=== PATIENT | female | born 1960 | race Caucasian/White ===

== ENCOUNTER → 2021-01-09 | Outpatient (CLI) | payer OTHER ==
[~2021-01-09] MED LIST: AMLODIPINE-OLM1 EAC4 PO; CYCL10 PO; MELATONIN5 M1; NAPR500 PO; PANT20 PO; PRINIVIL5 M1 PO; ZOLOFT100 M3
[2021-01-12 18:09] LABS: COTININE Negative ng/mL (Cutoff=300)
== END | disposition home or self-care (01) ==
LOC: LAB 15:49 → LAB SHORT 15:49 → EDSTATUS 12-19 17:05 → LAB FUT 12-19 17:05
PROVIDERS: Podiatrist Foot & Ankle Surgery
DX: Z01.812 Encounter for preprocedural laboratory examination (principal); M17.11 Unilateral primary osteoarthritis, right knee; M20.5X1 Other deformities of toe(s) (acquired), right foot

== ENCOUNTER 2021-01-28 12:26 | Day surgery (SDC) | payer OTHER ==
[~2021-01-28] VITALS: Ht 162.6 cm; Wt 221.2 kg
[2021-01-28] MEDS ORDERED: ZOLOFT100 M3 (13:03)
[2021-01-28] MEDS ORDERED: PANT20 PO (13:04)
[2021-01-28] MEDS ORDERED: NAPR500 PO (13:04)
[2021-01-28] MEDS ORDERED: PRINIVIL5 M1 PO (13:05)
[2021-01-28] MEDS ORDERED: AMLODIPINE-OLM1 EAC4 PO (13:05)
[2021-01-28] MEDS ORDERED: CYCL10 PO (13:06)
[2021-01-28] MEDS ORDERED: MELATONIN5 M1 (13:06)
--- NOTE | 2021-01-28 13:24 | NUR ---
01/28/21 1324 Mónica Zuniga CHARTED BY GILLES LEONARD RN
--- NOTE | 2021-01-28 14:11 | NUR ---
01/28/21 1411 Maggie Ambrose 0.15CC OF EPI 1:1000 MIXED IN 30CC OF 0.5% BUPIVICAINE TO MAKE 1:200,000
--- NOTE | 2021-01-29 07:34 | NUR ---
01/29/21 0734 Lin Hernandez LATE ENTRY FROM 01/28/21 1610. PT TITRATED DOWN FROM 15L/MIN OF OXYGEN TO MAINTAIN 92% ON ROOM AIR. PT ENCOURAGED TO DEEP BREATHE AND COUGH. TEACH BACK METHOD PERFORMED FOR INCENTIVE SPIROMETER. PT DEMONSTRATED WITHOUT DIFFICULTY.
== END 2021-01-28 16:36 | disposition home or self-care (01) ==
LOC: ORSCSDS 12:26
PROVIDERS: Podiatrist Foot & Ankle Surgery
PROC: 0SGM04Z Fusion of Right Metatarsal-Phalangeal Joint with Internal Fixation Device, Open Approach (ICD-10-PCS; principal; 2021-01-28 13:45)
PROC: 0QSN04Z Reposition Right Metatarsal with Internal Fixation Device, Open Approach (ICD-10-PCS; principal; 2021-01-28 13:45)
PROC: 0SGP04Z Fusion of Right Toe Phalangeal Joint with Internal Fixation Device, Open Approach (ICD-10-PCS; principal; 2021-01-28 13:45)
PROC: 0SRP0JZ Replacement of Right Toe Phalangeal Joint with Synthetic Substitute, Open Approach (ICD-10-PCS; principal; 2021-01-28 13:45)
DX: M20.41 Other hammer toe(s) (acquired), right foot (principal); M20.5X1 Other deformities of toe(s) (acquired), right foot; S93.129A Dislocation of metatarsophalangeal joint of unspecified toe(s), initial encounter; M25.374 Other instability, right foot; M20.61 Acquired deformities of toe(s), unspecified, right foot; I10 Essential (primary) hypertension; K21.9 Gastro-esophageal reflux disease without esophagitis; G47.33 Obstructive sleep apnea (adult) (pediatric); E66.01 Morbid (severe) obesity due to excess calories; Z68.38 Body mass index [BMI] 38.0-38.9, adult; Z79.899 Other long term (current) drug therapy
CPT/HCPCS: A9270; C1713; C1769; J0171; J0690; J1100; J2250; J2405; J2704; J3010; J7120

== ENCOUNTER 2021-12-05 13:44 | Day surgery (SDC) | payer OTHER ==
[~2021-12-05] VITALS: Ht 162.6 cm; Wt 103.4 kg
[~2021-12-05 13:44] MED LIST changes: +AMLO10 PO; +BACL10 PO; +Cyclobenzaprine5 MG PO; +FAMO20 PO; +LIDO700A20 TOP; +LISI5 PO; +MELATONIN1 MG PO; +MONT10T PO; +NAC600 MG PO; +NAPR220 PO; +Percocet 5-3251 EACH PO; +SERT100 PO; +ZYRTEC10 M2 PO
== END 2021-12-05 16:50 | disposition home or self-care (01) ==
LOC: ORSCSDS 13:44
PROVIDERS: Student in an Organized Health Care Education/Training Program
PROC: 0DBN8ZX Excision of Sigmoid Colon, Via Natural or Artificial Opening Endoscopic, Diagnostic (ICD-10-PCS; principal; 2021-12-05 15:00)
PROC: 0DBH8ZX Excision of Cecum, Via Natural or Artificial Opening Endoscopic, Diagnostic (ICD-10-PCS; principal; 2021-12-05 15:00)
DX: R19.5 Other fecal abnormalities (principal); D12.0 Benign neoplasm of cecum; K63.5 Polyp of colon; K64.4 Residual hemorrhoidal skin tags; G47.33 Obstructive sleep apnea (adult) (pediatric); I10 Essential (primary) hypertension; E66.9 Obesity, unspecified; Z68.39 Body mass index [BMI] 39.0-39.9, adult; Z79.899 Other long term (current) drug therapy
CPT/HCPCS: 88305; J0330; J0461; J2405; J2704; J7120

== ENCOUNTER 2022-07-07 14:05 | Day surgery (SDC) | payer OTHER ==
[~2022-07-07] VITALS: Ht 162.6 cm; Wt 104.3 kg
--- NOTE | 2022-07-07 15:30 | NUR ---
07/07/22 1530 Radha Cutler 0.15MG OF EPI ADDED TO 30MLS ROPIVACAINE 0.5% TO CREATE A LOCAL SOLUTION OF ROPIVACAINE 0.5% WITH EPI 1:200,000. LOCAL POURED ONTO STERILE FIELD FOR USE DURING CASE.
== END 2022-07-07 17:10 | disposition home or self-care (01) ==
LOC: ORSCSDS 14:05
PROVIDERS: Podiatrist Foot & Ankle Surgery
PROC: 0SGP04Z Fusion of Right Toe Phalangeal Joint with Internal Fixation Device, Open Approach (ICD-10-PCS; principal; 2022-07-07 15:30)
PROC: 0SPM04Z Removal of Internal Fixation Device from Right Metatarsal-Phalangeal Joint, Open Approach (ICD-10-PCS; principal; 2022-07-07 15:30)
PROC: 0QBN0ZZ Excision of Right Metatarsal, Open Approach (ICD-10-PCS; principal; 2022-07-07 15:30)
DX: M20.41 Other hammer toe(s) (acquired), right foot (principal); T84.84XA Pain due to internal orthopedic prosthetic devices, implants and grafts, initial encounter; M79.671 Pain in right foot; I10 Essential (primary) hypertension; G47.33 Obstructive sleep apnea (adult) (pediatric); E66.9 Obesity, unspecified; Z68.39 Body mass index [BMI] 39.0-39.9, adult
CPT/HCPCS: A9270; C1713; J0171; J0690; J2250; J2704; J2795; J3010

== ENCOUNTER 2023-11-26 06:48 | Day surgery (SDC) | payer OTHER ==
[~2023-11-26] VITALS: Ht 162.6 cm; Wt 85.4 kg
[~2023-11-26 06:48] MED LIST changes: +Lactated Ringer's 1,000 ML IV ONE
[2023-11-26] MEDS ORDERED: NS 50 ML IV ONE (06:58)
[2023-11-26] MEDS ORDERED: CeFAZolin Sodium 2,000 MG VIAL ONE (06:58)
[2023-11-26] MEDS ORDERED: Lidocaine HCl 2% 10 ML SDA ONE (07:24)
[2023-11-26] MEDS ORDERED: Lactated Ringer's 1,000 ML IV ONE (07:32)
[2023-11-26] MEDS ORDERED: Midazolam HCl 1MG / ML 2ML Vial ONE (08:08)
[2023-11-26] MEDS ORDERED: propofoL 20 ML IV ONE (08:09)
[2023-11-26 08:37] VITALS: BP 146/78
== END 2023-11-26 08:47 | disposition home or self-care (01) ==
LOC: ORSCSDS 06:48
PROVIDERS: Orthopaedic Surgery
PROC: 01N54ZZ Release Median Nerve, Percutaneous Endoscopic Approach (ICD-10-PCS; principal; 2023-11-26 08:00)
DX: G56.03 Carpal tunnel syndrome, bilateral upper limbs (principal); I10 Essential (primary) hypertension; E78.5 Hyperlipidemia, unspecified; G47.33 Obstructive sleep apnea (adult) (pediatric); F41.9 Anxiety disorder, unspecified; F32.A Depression, unspecified; M79.7 Fibromyalgia; K21.9 Gastro-esophageal reflux disease without esophagitis; Z87.891 Personal history of nicotine dependence; Z79.899 Other long term (current) drug therapy
CPT/HCPCS: J0690; J2001; J2250; J2704; J7120

== ENCOUNTER 2024-01-28 09:43 | Day surgery (SDC) | payer OTHER ==
[~2024-01-28] VITALS: Ht 162.6 cm; Wt 87.1 kg
[2024-01-28] MEDS ORDERED: NS 50 ML IV ONE (09:52)
[2024-01-28] MEDS ORDERED: CeFAZolin Sodium 2,000 MG VIAL ONE (09:52)
[2024-01-28] MEDS ORDERED: Lidocaine 1%-Epineph 1:100000 20 ML MDV ONE (10:06)
[2024-01-28] MEDS ORDERED: Lactated Ringer's 1,000 ML IV ONE (10:08)
[2024-01-28] MEDS ORDERED: Ondansetron HCl 2 MG / ML 2ML Vial ONE (10:45)
[2024-01-28] MEDS ORDERED: Dexamethasone Sod Phos 10 MG/ML 1ML VIAL ONE (10:45)
[2024-01-28] MEDS ORDERED: propofoL 20 ML IV ONE ×2 (10:46→10:54)
[2024-01-28 11:19] VITALS: BP 159/89
== END 2024-01-28 11:37 | disposition home or self-care (01) ==
LOC: ORSCSDS 09:43 → ORD 12:00 → ORSCSDS 12:00
PROVIDERS: Orthopaedic Surgery
PROC: 01N54ZZ Release Median Nerve, Percutaneous Endoscopic Approach (ICD-10-PCS; principal; 2024-01-28 10:45)
DX: G56.02 Carpal tunnel syndrome, left upper limb (principal); M19.042 Primary osteoarthritis, left hand; F41.9 Anxiety disorder, unspecified; F32.A Depression, unspecified; K21.9 Gastro-esophageal reflux disease without esophagitis; I10 Essential (primary) hypertension; E78.5 Hyperlipidemia, unspecified; G47.30 Sleep apnea, unspecified; Z87.891 Personal history of nicotine dependence; Z79.899 Other long term (current) drug therapy
CPT/HCPCS: J0690; J1100; J2405; J2704; J7120